=== PATIENT | female | born 1955 | race Caucasian/White ===

== ENCOUNTER → 2022-11-04 09:39 | Outpatient (BNVA) | payer BC, SELFPAY | PROVIDERS: Referring Provider Dermatology; Visit Provider Orthopaedic Surgery | DX: M25.551 Pain in right hip (principal); M25.552 Pain in left hip; M54.50 Low back pain, unspecified | CPT/HCPCS: 73522 ==

== ENCOUNTER 2022-11-06 10:41 | Outpatient (CLI) | payer BC, SELFPAY ==
--- NOTE | 2022-11-06 11:00 | MR_ITS ---
WS: [id number] MRI LUMBAR SPINE NONCONTRAST HISTORY: back pain COMPARISON: None available. TECHNIQUE: Sagittal and axial multisequence imaging is submitted. Less than 2 mm retrolisthesis of L2. Severe disc space narrowing and desiccation at L2-3. No acute fractures or marrow edema. Conus terminates normally at L1. L1-L2: No significant stenosis and no disc protrusion. L2-L3: Moderate diffuse annular disc bulging. Bilateral facet joint arthropathy, RIGHT greater than L EFT. RIGHT facet joint encroaching into the RIGHT lateral thecal sac and narrowing the subarticular r ecess. Moderate central with bilateral subarticular recess encroachment, RIGHT greater than LEFT. Mil d bilateral foraminal stenosis. Correlate with traversing RIGHT L3 nerve root symptoms. L3-L4: Mild annular disc bulging with mild ligamentum flavum and facet arthritis. Mild central and bi lateral subarticular recess stenosis. Slightly greater narrowing of the RIGHT subarticular recess. L4-L5: Mild annular disc bulging encroaching upon the ventral thecal sac. Mild ligamentum flavum and facet arthritis. Mild central, bilateral subarticular recess and foraminal stenosis. L5-S1: Mild annular disc bulging. Mild facet joint arthritis. Paravertebral soft tissues are normal. MR/MR lumbar spine wo con* [id number] IMPRESSION: 1. Moderate central with bilateral subarticular recess stenosis at L2-3, RIGHT greater than LEFT. Most significant encroachment upon the traversing RIGHT L3 nerve root. 2. Advanced degenerative disc disease at L2-3. 3. Mild central and bilateral subarticular recess stenosis at L3-4, greatest o n the RIGHT. 4. Mild central, bilateral subarticular recess and foraminal stenosis at L4-5.
== END 2022-11-06 10:42 | disposition home or self-care (01) ==
PROVIDERS: PCP Nurse Practitioner Family; Visit Provider Orthopaedic Surgery
DX: M48.061 Spinal stenosis, lumbar region without neurogenic claudication (principal); M51.36 Other intervertebral disc degeneration, lumbar region
CPT/HCPCS: 72148

== ENCOUNTER → 2022-11-19 08:19 | Outpatient (BNVA) | payer BC, SELFPAY | PROVIDERS: PCP Nurse Practitioner Family; Referring Provider Orthopaedic Surgery; Visit Provider Orthopaedic Surgery | DX: M48.061 Spinal stenosis, lumbar region without neurogenic claudication (principal) | CPT/HCPCS: 72110 ==